=== PATIENT | male | born 1950 | race Caucasian/White ===

== ENCOUNTER 2016-07-24 09:06 | Day surgery (SDC) | payer BC ==
[~2016-07-24] VITALS: Ht 170.2 cm; Wt 83.9 kg
[~2016-07-24 09:06] MED LIST: AMLODIPINE5 MG PO; ASPIRIN LOW DOS81 M2 PO; FINASTERIDE5 MG PO; LOSARTAN POT100 MG PO; METFORMIN500 MG PO; MEVACOR40 MG PO; MULTIVITAMIN AD1 TA1 PO
[2016-07-24 12:44] VITALS: BP 142/68
== END 2016-07-24 12:00 | disposition home or self-care (01) | DRG 951 ==
LOC: ENDO 09:06
PROVIDERS: ATTEND Surgery
PROC: 0DJD8ZZ Inspection of Lower Intestinal Tract, Via Natural or Artificial Opening Endoscopic (ICD-10-PCS; principal; 2016-07-24)
DX: Z12.11 Encounter for screening for malignant neoplasm of colon (principal); I10 Essential (primary) hypertension; K57.30 Diverticulosis of large intestine without perforation or abscess without bleeding; E11.9 Type 2 diabetes mellitus without complications; E78.5 Hyperlipidemia, unspecified